=== PATIENT | female | born 1980 | race Hispanic/Latino ===

== ENCOUNTER 2021-03-27 13:43 | Outpatient (CLI) | payer OTHER ==
[2021-03-27 13:49] LABS: PLATELET COUNT 324 K/uL (152-353)
== END 2021-03-27 22:36 | disposition home or self-care (01) ==
LOC: LAB 13:43
PROVIDERS: ATTEND Physician Assistant
DX: N92.0 Excessive and frequent menstruation with regular cycle (principal); D50.9 Iron deficiency anemia, unspecified
CPT/HCPCS: 36415; 85027